=== PATIENT | female | born 1985 | race African-American/Black ===

== ENCOUNTER 2017-01-30 19:57 | Emergency (ER) | payer OTHER ==
--- NOTE | ~2017-01-30 | CR72 ---
[facility] A Service of [facility] & [facility] RADIOLOGY TEXT RESULTS PATIENT: KENTON LAMB LOCATION: [facility] : 85 UNIT #: [id number] AGE: [address]: Santos Ledezma MD SEX: F ORDER DR: [id number] [facility] [address] [place], [place] [address] [id number] E MR#: [id number] Acc #: [id number] NAME: KENTON LAMB : 1985 SEX: F STUDY DATE/TIME: 01/30/2017 19:51 UNIT: [facility] ROOM: STUDY DESCRIPTION: CR Chest Single View Portable Attending Physician: Santos Ledezma M.D. Ordering Physician: Santos Ledezma M.D. Primary Care Physician: Vinny Greenberg M.D. MEDICAL IMAGING REPORT This report is preliminary unless electronic signature is present EXAM AP radiograph of the chest, 01/30/2017 HISTORY Back pain. Left shoulder pain. Short of air began this a.m. FINDINGS AP radiograph of the chest is presented. No comparisons. Mild levoscoliosis of the thoracic spine which may be positional in nature. There is no clearly acute bony abnormality. The heart is borderline enlarged. The lungs are moderately well inflated without evidence of acute infectious or inflammatory disease, pleural effusion or pneumothorax. No suspicious nodule. Dictated by... Contreras Forbes M.D. THIS IS AN ELECTRONICALLY VERIFIED REPORT Contreras Forbes M.D. at 01/31/2017 6:48 PM Kaur TD: 01/30/2017 23:56 JOB #: [id number] MEDICAL IMAGING REPORT Page 1 of 1 COPY
[~2017-01-30 19:57] MED LIST: BACTRIM DS TABL1 TA1 PO; HYDROCODON-ACE1 EAC9 PO; PYRIDIUM PO
[2017-06-21] MEDS ORDERED: DITROPAN5 MG PO (01:51)
== END 2017-01-30 20:58 | disposition home or self-care (01) ==
LOC: CED 19:57
DX: S46.912A Strain of unspecified muscle, fascia and tendon at shoulder and upper arm level, left arm, initial encounter (principal); S16.1XXA Strain of muscle, fascia and tendon at neck level, initial encounter; Z88.0 Allergy status to penicillin; X58.XXXA Exposure to other specified factors, initial encounter; Y92.9 Unspecified place or not applicable
CPT/HCPCS: 71010; 99283